=== PATIENT | male | born 1955 | race Caucasian/White ===

== ENCOUNTER 2016-04-02 10:49 | Day surgery (SDC) | payer OTHER ==
[~2016-04-02] VITALS: Ht 190.5 cm; Wt 102.1 kg
[2016-04-02 12:04] LABS: BASOPHILS 0.4 % (0.0-2.0); EOSINOPHILS 1.7 % (0-7); HEMATOCRIT 46.3 % (42.0-54.0); HEMOGLOBIN 16.6 g/dL (13.5-17.5); IMMATURE GRANULOCYTES 0.3 % (0-5); LYMPHOCYTES 24.4 % (15-50); MCH 32.1 pg (26.0-34.0); MCHC 35.9 g/dL (31.0-37.0); MCV 89.6 fL (80.0-100.0); MEAN PLATELET VOLUME 9.6 fL (7.4-10.4); MONOCYTES 8.6 % (2-11); NEUTROPHILS 64.6 % (40-80); PLATELET COUNT 193 10x3/uL (130-400); RBC 5.17 10x6/uL (4.20-6.10); RDW 12.5 % (11.5-14.5); WBC 8.9 10x3/uL (4.8-10.8)
[2016-04-02] MEDS ORDERED: NORVASC5 MG PO (12:08)
[2016-04-02 12:10] VITALS: BP 148/91; Ht 190.5 cm; Wt 102.1 kg
[2016-04-02 12:14] LABS: CALC OSMOLALITY 284 mosm/kg (275-300); CALCIUM 8.9 mg/dL (8.5-10.1); CARBON DIOXIDE 29.8 mmol/L (21.0-32.0); CHLORIDE - SERUM 103 mmol/L (98-107); GLUCOSE 167 mg/dL (74-106); POTASSIUM - SERUM 4.4 mmol/L (3.5-5.1); SODIUM 139 mmol/L (136-145); UREA NITROGEN 20 mg/dL (7-18); eGFR NON AFRICAN AMERICAN 81 mL/min (90-120)
--- NOTE | 2016-04-02 19:02 | NUR ---
1700 C/O NUASEA , ZOFROM GIVEN, STILL UNABLE TO VOID
--- NOTE | 2016-04-02 19:03 | NUR ---
1820 VOIDED IV DC WITH CATHER TIP INTACT
--- NOTE | 2016-04-06 13:46 | OP ---
PATIENT NAME: DALTON MAURICIO MEDICAL RECORD: [id number] :57 LOCATION:D.OPS ADMISSION DATE: SURGEON: KOLE GREEN MD DATE OF OPERATION: 04/02/2016 PREOPERATIVE DIAGNOSES: 1. Right inguinal hernia. 2. Diabetes mellitus. 3. Hypertension. 4. Tobacco dependence syndrome. POSTOPERATIVE DIAGNOSES: 1. Right inguinal hernia. 2. Diabetes mellitus. 3. Hypertension. 4. Tobacco dependence syndrome. PROCEDURE: Right inguinal hernia repair with medium PHS mesh. SURGEON: Kole Green MD REPORT OF PROCEDURE: The patient's right groin was prepped and draped in sterile fashion. An oblique incision was made above the inguinal ligament. Electrocautery was used to dissect through subcutaneous tissues to the external oblique fascia. The fascia was opened up to the external ring using Metzenbaum scissors. The ilioinguinal nerve was found and high ligated. The spermatic cord was elevated and a Marely was placed around it. The patient had a lot of redundant tissue around the spermatic cord leading down to the testicle. The testicle was inspected and did show signs of a small hydrocele. We released the fascia around the testicle and removed the fluid from hydrocele. The patient's testes was then excised using electrocautery. The testicle itself otherwise appeared to be normal. We placed the testes back into the scrotum. An indirect hernia defect was found along with a large cord lipoma. This was dissected free dunk back down into the peritoneal cavity. A medium PHS mesh was inserted into the preperitoneal space of Retzius and then sutured down on all 4 sides using multiple interrupted 0 Vicryls. This mesh appeared to lie well over the tissues. There was no sign of any active bleeding. We then irrigated out the wound with normal saline. The external oblique fascia was closed with running 2-0 Vicryl, Nomi's was closed with interrupted 3-0 Vicryls and the skin was closed with running subcutaneous 5-0 Monocryl. A 10 mL of 0.25% Marcaine with epinephrine were infused into the surrounding tissues and the wounds were dressed appropriately. COMPLICATIONS: None. CONDITION: Stable. ANESTHESIA: General endotracheal and local. BLOOD LOSS: Minimal. TRANSINT:[id number] Voice Confirmation ID: [id number] DOCUMENT ID: [id number] OPERATIVE REPORT [id number] DALTON MAURICIO CHRISTIAN MD at 1346 CC: BELKIS HARRIS M.D. [phone] DICTATION DATE: 04/02/16 151 FLOORWALKER: 04/02/16 1833 [facility] 04/02/16 [place] [id number] [place] [id number]
== END 2016-04-02 18:30 | disposition home or self-care (01) ==
LOC: D.OPS 10:49 → D.PAN 13:00 → D.OPS 13:00
PROVIDERS: Surgery
DX: K40.90 Unilateral inguinal hernia, without obstruction or gangrene, not specified as recurrent (principal); I10 Essential (primary) hypertension; E11.9 Type 2 diabetes mellitus without complications; F17.200 Nicotine dependence, unspecified, uncomplicated